=== PATIENT | male | born 1965 | race Caucasian/White ===

== ENCOUNTER 2020-02-11 08:48 | Emergency (ER) | payer MEDICAID, SELFPAY ==
[2020-02-11] VITALS (42 sets, daily range): BP systolic 158–223; BP diastolic 97–128; PULSE 59–100; RESP 9–23; TEMP 36.6; O2SAT 96–99
--- NOTE | 2020-02-11 08:45 | RT.EKG_ITS ---
APPROVED REPORT Exam: Resting ECG Patient Location: E HR:95 bpm ECG Measurements Heart Rate 95 AXIS W[place] 179 P 62 QRSd 108 QRS 28 QT 379 T 59 QTc 477 Conclusion Sinus rhythm...normal P axis, V-rate 60- 99 Probable left atrial enlargement...P >50mS, <-0.10mV V1 Inferior infarct, old...Q >35mS, II III aVF. 1mm ST depression in I, aVL, V3-6. No STEMI. Q waves II, III, aVF. I have reviewed and interpreted ECG and agree with software generated interpretation.
--- NOTE | 2020-02-11 09:00 | DI.RAD_ITS ---
EXAM: XR CHEST 2V PA LATERAL CLINICAL HISTORY: chest pressure. TECHNIQUE: 2D digital imaging was performed. COMPARISON: No exams were available for comparison FINDINGS: Heart size is normal. The mediastinum is not widened. 4 millimeter calcified granuloma in the right upper lobe is noted. There is hyperinflation both lung love but no infiltrates nor pleural effusions. No pulmonary edema. No pneumothorax. IMPRESSION: No acute pulmonary findings.Hyperinflation noted. Right lung benign calcified granuloma noted. DATA REPOSITORY: RADIATION DOSE DELIVERED:
--- NOTE | 2020-02-11 09:14 | W.ED.GENAD ---
Discharge Plan Disposition Patient Disposition: [facility] Condition: Serious Discharge Details Clinical Impression: Non-ST elevation CA (NSTEMI) Primary Care Provider: None,None ED Provider: Alphonso Yeh Home Meds and New Rx's Prescriptions: No Action No Known Home Meds RF: 0 Medical Decision Making <JOSE ANGEL Dinero - Last Filed: 02/11/20 12:41> This is a 54-year-old gentleman, former smoker, currently drinks 2 glasses of wine nightly, presenting to the ER for chest aching that radiates to both shoulders, but he initially felt to be heartburn. He took his typical baking soda mixture with no relief. Symptoms began yesterday, maxed at a 5 out of 10, and he actually hiked 6 miles yesterday. I do feel as though his story is quite concerning for ACS, case was immediately discussed with Dr. Curry. Will initiate sublingual nitro x3 if necessary and a full dose aspirin. We will initiate a cardiac work-up including a D-dimer. Patient reports his pain is a 2 out of 10 now, he is quite hypertensive. 0928 single nitro given 188/121. Aching now a 1 out of 10 I received a critical troponin of 5.95. EKG was immediately faxed to [facility] and a transfer to cardiology was initiated at 0938. 0947 blood pressure trending down at 174/120. Laboratory values reveal a white blood cell count of 16.32 hemoglobin 17.0 hematocrit 50.5 platelet count 371. INR 1.0 D-dimer 232. Potassium 3.0 creatinine 0.9 with a GFR greater than 60. Glucose 139. Magnesium 2.3. AST 101 ALT 77. Urine 20-50 red blood cells, no signs of infection. Chest x-ray read by radiology as no acute pulmonary findings. Hyperinflation noted. A right lung benign calcified granuloma noted. I received a call at 0950, from Dr. Jin, at [facility]. We discussed the case, she was able to review the EKG. Would like a loading dose of 180 Brilinta given, both a heparin bolus and drip initiated. Would like to replenish potassium, p.o. metoprolol, p.o. atorvastatin, and a nitro drip depending on if the patient is pain-free and how his blood pressure is doing. 40 p.o. potassium given. 80 atorvastatin 12.5 metoprolol p.o. given. Both a heparin bolus and drip initiated per protocol. Brilinta given. Excepting will be cardiology, Dr. Landa. Patient will not be going immediately to the [facility]. Patient did receive his third nitro. Repeat EKG performed at 1008. Please see official report by Dr. Curry. Sinus rhythm, ventricular rate of 85. The depressions segments that were present on the initial EKG do appear to be improved. Subtle depression remains in V4 and V5 only. Blood pressure at 1009 trending downward 168/108. Evaluation findings and my conversation with cardiology discussed with patient. Patient is agreeable to transfer to [facility]. All appropriate paperwork signed. 1020. Upon reevaluation blood pressure continues to trend downward 158/104. Patient reports that his chest pressure has resolved. Given this, we will not initiate a nitro drip. If has been at least an hour since last visit with [facility], they were contacted once again to see where we stand with transfer. They are in the process of discharging patient and will hopefully have a room soon. At 1124 I once again reevaluated the patient, he reports that he is asymptomatic. Denies chest aching whatsoever. Blood pressure now 171/102. At 1150 I reevaluated the patient. His blood pressure remains elevated at 170/100, no longer trending downward. He reports that his pain or aching has returned although mild in nature. 1 out of 10. Given his persistent hypertension and return of chest pain, will initiate a nitro drip, will initiate at 5 micrograms 3-hour repeat troponin 10.70. At 1238 patient is pain-free. Blood pressure trending downward, 158/102. 1240; [facility] called, they have given us a bed, arranging transfer. Lab Data Lab results reviewed: Yes I reviewed the patient's lab results. Lab results narrative: Laboratory Tests Range/Units 02/11/20 02/11/20 02/11/20 09:00 09:00 09:00 WBC (4.4-10.8) 10^3/uL 16.32 H RBC (4.36-5.78) 10^6/uL 5.68 Hgb (13.5-17.5) g/dL 17.0 Hct (40.0-50.0) % 50.5 H MCV (80-95) fL 88.9 MCH (27.0-33.0) pg 29.9 MCHC (32.0-36.0) % 33.7 RDW (11.8-14.1) % 12.3 Plt Count (130-400) 10^3/uL 371 MPV (8.0-11.0) fL 9.8 Immature Gran % 0.5 Neutrophils % 74.7 Lymphocytes % 18.6 Monocytes % 5.5 Eosinophils % 0.3 Basophils % 0.4 Nucleated RBC % % 0 Absolute Neutrophils (1.2-6.7) 10^3/uL 12.19 H Absolute Lymphocytes (1.2-3.4) 10^3/uL 3.04 Absolute Monocytes (0.1-0.8) 10^3/uL 0.90 H Absolute Eosinophils (0.0-0.7) 10^3/uL 0.05 Absolute Basophils (0.0-0.2) 10^3/uL 0.07 PT (9.3-11.0) sec 9.9 INR (0.9-1.1) 1.0 APTT (21.0-27.5) sec 24.1 D-Dimer (<500) ng/mlFEU 232 Sodium (136-145) mmol/L 138 Potassium (3.5-5.1) mmol/L 3.0 L Chloride (98-107) mmol/L 102 Carbon Dioxide (21.0-32.0) mmol/L 24.4 Anion Gap (3-11) mmol/L 11.6 H BUN (7-18) mg/dL 12 Creatinine (0.70-1.30) mg/dL 0.99 Estimated GFR/1.73 m2 (mL/min/1.73m2) >= 60.00 Glucose (74-106) mg/dL 139 H Calcium (8.5-10.1) mg/dL 9.7 Magnesium (1.8-2.4) mg/dL 2.3 Total Bilirubin (0.2-1.0) mg/dL 0.6 AST (15-37) U/L 101 H ALT (16-63) U/L 77 H Alkaline Phosphatase (46-116) U/L 93 Troponin I (<0.06) ng/mL 5.95 H* Total Protein (6.4-8.2) g/dL 8.7 H Albumin (3.4-5.0) g/dL 4.5 Urine Color (Yellow) Urine Clarity (Clear) Urine pH (5-8) Ur Specific [place] (1.005-1.025) Urine Protein (Negative) mg/dL Urine Ketones (Negative) mg/dL Urine Blood (Negative) Urine Nitrite (Negative) Urine Bilirubin (Negative) Urine Urobilinogen (Up TO 0.2) EU/dL Ur Leukocyte Esterase (Negative) Urine RBC (0-2) HPF Urine WBC (0-5) HPF Ur Epithelial Cells (Negative) HPF Urine Crystals (Negative) HPF Urine Bacteria (Negative) HPF Urine Casts (Negative) LPF Urine Mucus (Negative) Ur Culture Indicated? Urine Glucose (Negative) mg/dL Range/Units 02/11/20 09:30 WBC (4.4-10.8) 10^3/uL RBC (4.36-5.78) 10^6/uL Hgb (13.5-17.5) g/dL Hct (40.0-50.0) % MCV (80-95) fL MCH (27.0-33.0) pg MCHC (32.0-36.0) % RDW (11.8-14.1) % Plt Count (130-400) 10^3/uL MPV (8.0-11.0) fL Immature Gran % Neutrophils % Lymphocytes % Monocytes % Eosinophils % Basophils % Nucleated RBC % % Absolute Neutrophils (1.2-6.7) 10^3/uL Absolute Lymphocytes (1.2-3.4) 10^3/uL Absolute Monocytes (0.1-0.8) 10^3/uL Absolute Eosinophils (0.0-0.7) 10^3/uL Absolute Basophils (0.0-0.2) 10^3/uL PT (9.3-11.0) sec INR (0.9-1.1) APTT (21.0-27.5) sec D-Dimer (<500) ng/mlFEU Sodium (136-145) mmol/L Potassium (3.5-5.1) mmol/L Chloride (98-107) mmol/L Carbon Dioxide (21.0-32.0) mmol/L Anion Gap (3-11) mmol/L BUN (7-18) mg/dL Creatinine (0.70-1.30) mg/dL Estimated GFR/1.73 m2 (mL/min/1.73m2) Glucose (74-106) mg/dL Calcium (8.5-10.1) mg/dL Magnesium (1.8-2.4) mg/dL Total Bilirubin (0.2-1.0) mg/dL AST (15-37) U/L ALT (16-63) U/L Alkaline Phosphatase (46-116) U/L Troponin I (<0.06) ng/mL Total Protein (6.4-8.2) g/dL Albumin (3.4-5.0) g/dL Urine Color (Yellow) Yellow Urine Clarity (Clear) Clear Urine pH (5-8) 7.0 Ur Specific [place] (1.005-1.025) 1.025 Urine Protein (Negative) mg/dL 30 H Urine Ketones (Negative) mg/dL Negative Urine Blood (Negative) Small H Urine Nitrite (Negative) Negative Urine Bilirubin (Negative) Negative Urine Urobilinogen (Up TO 0.2) EU/dL 0.2 Ur Leukocyte Esterase (Negative) Negative Urine RBC (0-2) HPF 20-50 H Urine WBC (0-5) HPF 0-2 Ur Epithelial Cells (Negative) HPF Negative Urine Crystals (Negative) HPF Negative Urine Bacteria (Negative) HPF Few Urine Casts (Negative) LPF Negative Urine Mucus (Negative) Negative Ur Culture Indicated? No Urine Glucose (Negative) mg/dL Negative ECG Data Attestation: I personally reviewed and interpreted this ECG (s) as follows: Interpretation: Please see official report by Dr. Curry. Sinus rhythm, ventricular rate of 95. Subtle ST depression V3 through V6, lead I <Radha Curry DO - Last Filed: 02/11/20 10:34> I have seen and examined this patient. I discussed case and reviewed note with the PA and I agree with plan and note as documented. HPI <JOSE ANGEL Dinero - Last Filed: 02/11/20 12:41> General Mode of arrival: ambulatory. Date/Time Provider Initiated Documentation: 02/11/20 08:49. Limitations to Documentation: no limitations. Information obtained by: patient. HPI Narrative: This is a 54-year-old gentleman, former smoker, who has not had any medical attention in the last 10 years. He is presenting today for what he describes as heartburn, chest aching, that is different than his typical heartburn. He reports that it was present yesterday morning, is primarily substernal and he feels a heaviness to both of his shoulders, this heaviness does radiate into his bilateral biceps. He reports that the aching has been as severe as a 5 out of 10, currently a 2 out of 10. He typically checks his blood pressure a couple times a week, primarily runs in the 160s over 90s. He reports a dull mild global headache. Denies recent illness or trauma. Denies visual changes, fever, neck pain, shortness of breath, cough, abdominal pain, nausea, vomiting, diarrhea, constipation, numbness, tingling, weakness, pain or swelling in his legs. He does state that he thought he may have urinated more yesterday than usual. He took his home remedy of baking soda which typically helps with his heartburn without any resolution of his symptoms. Nothing makes his symptoms worse or better. He does state that it has been present, fairly constant for the past nearly 24 hours, but did ease up yesterday midday. He states that he went on a 6 mile hike yesterday and denies any worsening chest aching or any shortness of breath whatsoever during his activities. Related Data Home Medications Medication Instructions Recorded Confirmed Unknown [No Known Home Meds] 02/11/20 02/11/20 Allergies Allergy/AdvReac Type Severity Reaction Status Date / Time No Known Allergies Allergy Unverified 02/11/20 08:53 General Stated Complaint: Chest Pain JOSEFA: 2 Review of Systems <JOSE ANGEL Dinero - Last Filed: 02/11/20 12:41> Constitutional Constitutional: Denies fatigue, Denies fever(s), Reports headache(s) and Denies weakness Eyes Eyes: Denies change in vision ENT Ears, Nose, Mouth, and Throat: Reports headache(s) and Denies neck pain Cardiovascular Cardiovascular: Reports chest pain (Aching) and Denies dyspnea Respiratory Respiratory: Denies cough and Denies dyspnea Gastrointestinal Gastrointestinal: Denies abdominal pain, Reports belching, Denies constipation, Denies diarrhea, Denies nausea and Denies vomiting Genitourinary Genitourinary: Reports urinary frequency Musculoskeletal Musculoskeletal: Denies back pain, Denies neck pain and Denies tingling Integumentary/Breasts Skin/Breast: Denies rash Neurologic Neurologic: Reports headache(s), Denies tingling and Denies weakness Endocrine Endocrine: Denies fatigue PFSH <JOSE ANGEL Dinero - Last Filed: 02/11/20 12:41> Social History Smoking/Tobacco Use Status: Former Tobacco Use Smoking risk assessment performed?: Yes Alcohol Intake: current Alcohol Intake frequency: 0-2 drinks per day Alcohol type: wine Drug use: Occasionally Substance use type: marijuana Do you feel safe at home: Yes Do you feel safe in your relationship?: Yes Exam <JOSE ANGEL Dinero - Last Filed: 02/11/20 12:41> Const General: cooperative, healthy appearing, comfortable and no acute distress Orientation: alert, awake and oriented x3 HENMT Head: normal to inspection, normocephalic and atraumatic Eyes General: appearance normal, both eyes and all related structures Conjunctivae: conjunctivae normal Sclera: sclerae normal Neck Neck: normal visual inspection, full ROM, meningismus present, trachea midline and supple Chest Chest: normal inspection of the chest and normal palpation of entire chest wall Resp Effort & Inspection: normal respiratory effort and able to speak in complete sentences Auscultation: clear to auscultation bilaterally Cardio Rate: regular rate Rhythm: regular rhythm GI Inspection: normal to inspection Palpation: soft, not firm, no guarding, no pulsatile masses and nontender Auscultation: normal bowel sounds Back/Spine/Pelvis Back: No back tenderness Skin General skin exam: no rashes or lesions noted Neuro General: patient alert, patient awake, patient oriented x3, moves all extremities and no focal motor deficits Cognition: normal cognition Speech: speech normal Gait: normal gait Motor: muscle tone normal throughout Sensory Exam: no sensory deficits noted Extrem General: normal to inspection, full ROM, capillary refill normal, no pedal edema and no calf tenderness Psych Appearance: grossly normal Mental Status: mental status grossly normal Course <JOSE ANGEL Dinero - Last Filed: 02/11/20 12:41> Vital Signs Vital signs: Vital Signs Temperature 36.6 C 02/11/20 08:53 Pulse 95 H 02/11/20 08:53 Respiratory Rate 19 02/11/20 08:53 Blood Pressure 223/128 H 02/11/20 08:53 Pulse Oximetry 97 02/11/20 08:53 Temperature 36.6 C 02/11/20 08:53 Temperature Source Temporal Artery Scan 02/11/20 08:53 Pulse 95 H 02/11/20 08:53 Respiratory Rate 19 02/11/20 08:53 Respiratory Effort Non-Labored 02/11/20 08:57 Blood Pressure 223/128 H 02/11/20 08:53 Pulse Oximetry 97 02/11/20 08:53 Oxygen Delivery Method Room Air 02/11/20 08:53 Oxygen Flow Rate 0 02/11/20 08:53 Pain Level 3 02/11/20 08:53 Critical Care Time <JOSE ANGEL Dinero - Last Filed: 02/11/20 12:41> Critical Care Time Critical Care Time: Yes Total Critical Care Time: 45 Attestation: Upon my evaluation, this patient had a high probability of clinically significant, life-threatening deterioration due to their current medical conditions, which required my direct attention, intervention, and personal management. I have personally provided greater than 30 minutes of critical care time exclusive of the time spend on separately billable procedures. Time includes obtaining a history, examining the patient, pulse oximetry, review of laboratory data, radiology results, discussion with consultants, arranging urgent treatment with development of a management plan, evaluation of patient's response to treatment, and monitoring for potential decompensation. Interventions were performed as documented above.
[2020-02-11] MEDS: nitroGLYcerin 0.4 MG TAB SL ×3 (09:17→10:02)
[2020-02-11 09:18] LABS: Abs Immature Grans 0.08 10^3/uL (0.0-0.06); Absolute Eosinophil Count 0.05 10^3/uL (0.0-0.7); Basophils % 0.4; Eosinophils % 0.3; HCT 50.5 % (40.0-50.0); Immature Grans % 0.5; Lymphocytes % 18.6; MCH 29.9 pg (27.0-33.0); MCHC 33.7 % (32.0-36.0); MCV 88.9 fL (80-95); MPV 9.8 fL (8.0-11.0); Monocytes % 5.5; Neutrophils % 74.7; Nucleated RBC 0 %; Platelet Count 371 10^3/uL (130-400); RBC 5.68 10^6/uL (4.36-5.78); RDW 12.3 % (11.8-14.1); RDW-SD 40.2 fL; WBC 16.32 10^3/uL (4.4-10.8)
[2020-02-11] MEDS: Aspirin 81 MG CHEW 324 MG CH (09:18)
[2020-02-11 09:20] LABS: Absolute Basophil Count 0.07 10^3/uL (0.0-0.2); Absolute Lymphocyte Count 3.04 10^3/uL (1.2-3.4); Absolute Neutrophil Count 12.19 10^3/uL (1.2-6.7)
[2020-02-11 09:32] LABS: PTT Activated 24.1 sec (21.0-27.5); Prothrombin Time 9.9 sec (9.3-11.0)
[2020-02-11] MEDS: Normal Saline Flush 10 ML SYR IVP (09:32)
[2020-02-11 09:33] LABS: ALT 77 U/L (16-63); AST 101 U/L (15-37); Albumin 4.5 g/dL (3.4-5.0); Alkaline Phosphatase 93 U/L (46-116); Anion Gap 11.6 mmol/L (3-11); BUN 12 mg/dL (7-18); Bilirubin, Total 0.6 mg/dL (0.2-1.0); CO2 24.4 mmol/L (21.0-32.0); CREATININE 0.99 mg/dL (0.70-1.30); Calcium 9.7 mg/dL (8.5-10.1); Chloride 102 mmol/L (98-107); Glucose 139 mg/dL (74-106); Magnesium 2.3 mg/dL (1.8-2.4); Sodium 138 mmol/L (136-145); Total Protein 8.7 g/dL (6.4-8.2)
[2020-02-11 09:34] LABS: Troponin I 5.95 ng/mL (<0.06)
[2020-02-11 09:38] LABS: Bilirubin Negative (Negative); Blood Small (Negative); Clarity Clear (Clear); Glucose Negative (Negative); Ketones Negative (Negative); Leukocyte Esterase Negative (Negative); Nitrite Negative (Negative); Specific Gravity 1.025 (1.005-1.025); Urobilinogen 0.2 EU/dL (Up TO 0.2)
--- NOTE | 2020-02-11 10:00 | RT.EKG_ITS ---
APPROVED REPORT Exam: Resting ECG Patient Location: E HR:85 bpm ECG Measurements Heart Rate 85 AXIS [place] 160 P 66 QRSd 104 QRS 19 QT 387 T -13 QTc 461 Conclusion Sinus rhythm...normal P axis, V-rate 60- 99 Probable left atrial enlargement...P >50mS, <-0.10mV V1 Inferior infarct, old...Q >35mS, II III aVF I have reviewed and interpreted ECG and agree with software generated interpretation.
[2020-02-11 10:04] LABS: Bacteria Few HPF (Negative); C & S Indicated? No; Casts Negative LPF (Negative); Crystals Negative HPF (Negative); Epithelial Cells Negative HPF (Negative); Mucus Negative (Negative); RBC 20-50 HPF (0-2); WBC 0-2 HPF (0-5)
[2020-02-11] MEDS: Potassium Chloride 20 MEQ TABCR 40 MEQ PO (10:20)
[2020-02-11] MEDS: Atorvastatin 40 MG TAB 80 MG PO (10:22)
[2020-02-11] MEDS: Ticagrelor 90 MG TAB 180 MG PO (10:23)
[2020-02-11] MEDS: Metoprolol 12.5 MG TAB PO (10:29)
[2020-02-11 13:09] LABS: D-Dimer 323 ng/mlFEU (<500)
== END 2020-02-11 13:09 | disposition short-term general hospital (02) ==
PROVIDERS: Emergency Provider Physician Assistant
DX: I21.4 Non-ST elevation (NSTEMI) myocardial infarction (principal); R03.0 Elevated blood-pressure reading, without diagnosis of hypertension; R51.9 Headache, unspecified; Z87.891 Personal history of nicotine dependence
CPT/HCPCS: 36415; 80053; 93005; 96365; 96366; 96368; 96376; 99291; 71046; 81003; 81015; 83735; 84484; 85025; 85379; 85610; 85730; 93010; J3490

== ENCOUNTER 2020-03-14 08:53 | Outpatient (CLI) | payer MEDICAID, SELFPAY ==
--- NOTE | 2020-03-14 08:45 | RT.EKG_ITS ---
APPROVED REPORT Exam: Resting ECG Patient Location: O HR:55 bpm ECG Measurements Heart Rate 55 AXIS FL 182 P 57 QRSd 86 QRS 12 QT 414 T 2 QTc 396 Conclusion Sinus rhythm...normal P axis, V-rate 50- 99 Inferior infarct, old...Q >35mS, II III aVF
== END 2020-03-14 08:54 | disposition home or self-care (01) ==
LOC: DI.CARD 08:58
PROVIDERS: Visit Provider Internal Medicine Cardiovascular Disease
DX: I25.2 Old myocardial infarction (principal)
CPT/HCPCS: 93010

== ENCOUNTER 2021-02-09 08:43 | Emergency (ER) | payer MEDICAID, SELFPAY ==
[2021-02-09] VITALS (53 sets, daily range): BP systolic 130–180; BP diastolic 85–105; PULSE 59–110; RESP 7–28; TEMP 36.5; O2SAT 95–99
--- NOTE | 2021-02-09 08:45 | RT.EKG_ITS ---
APPROVED REPORT Exam: Resting ECG Reason for Exam: CHEST PAIN Patient Location: E HR:89 bpm ECG Measurements Heart Rate 89 AXIS DE 162 P 71 QRSd 106 QRS 40 QT 369 T 20 QTc 448 Conclusion Sinus rhythm...normal P axis, V-rate 60- 99 Ventricular bigeminy...bigeminy string>4 w/ V complexes no STEMI, non-diagnostic EKG I have reviewed and interpreted ECG and agree with software generated interpretation.
--- NOTE | 2021-02-09 09:00 | DI.RAD_ITS ---
Exam(s) XR PORTABLE CHEST AP EXAM: XR PORTABLE CHEST AP CLINICAL HISTORY: chest pain TECHNIQUE: 2D digital imaging was performed. COMPARISON: CR XR CHEST 2V PA LATERAL from 02/11/2020 FINDINGS: LUNGS: Hyperinflation. Scarring right upper lobe. No infiltrate. No pleural abnormality seen. HEART: Normal size. Coronary artery stent. MEDIASTINUM: Normal. BONES: Unremarkable. IMPRESSION: No acute pulmonary findings. DATA REPOSITORY: RADIATION DOSE DELIVERED:
--- NOTE | 2021-02-09 09:00 | RT.EKG_ITS ---
APPROVED REPORT Exam: Resting ECG Reason for Exam: chest pain Patient Location: E HR:65 bpm ECG Measurements Heart Rate 65 AXIS [place] 189 P 51 QRSd 96 QRS 10 QT 391 T 26 QTc 406 Conclusion Sinus rhythm...normal P axis, V-rate 60- 99 Inferior infarct, old...Q >35mS, II III aVF no STEMI, non-diagnostic EKG I have reviewed and interpreted ECG and agree with software generated interpretation.
[2021-02-09] MEDS: Aspirin 81 MG CHEW 243 MG CH (09:15)
[2021-02-09 09:16] LABS: Abs Immature Grans 0.05 10^3/uL (0.0-0.06); Absolute Basophil Count 0.07 10^3/uL (0.0-0.2); Absolute Eosinophil Count 0.42 10^3/uL (0.0-0.7); Absolute Lymphocyte Count 2.49 10^3/uL (1.2-3.4); Absolute Monocyte Count 0.62 10^3/uL (0.1-0.8); Absolute Neutrophil Count 7.08 10^3/uL (1.2-6.7); Basophils % 0.7; Eosinophils % 3.9; HCT 43.4 % (40.0-50.0); HGB 14.5 g/dL (13.5-17.5); Immature Grans % 0.5; Lymphocytes % 23.2; MCH 30.1 pg (27.0-33.0); MCHC 33.4 % (32.0-36.0); MCV 90.2 fL (80-95); MPV 10.1 fL (8.0-11.0); Monocytes % 5.8; Neutrophils % 65.9; Nucleated RBC 0 %; Platelet Count 332 10^3/uL (130-400); RBC 4.81 10^6/uL (4.36-5.78); RDW 12.1 % (11.8-14.1); RDW-SD 40.2 fL; WBC 10.73 10^3/uL (4.4-10.8)
[2021-02-09 09:26] LABS: Lipase 111 U/L (73-393)
--- NOTE | 2021-02-09 09:27 | ED.GENADUL_ITS ---
Discharge Plan Disposition Patient Disposition: HOME Condition: Stable Discharge Details Clinical Impression: Heart palpitations Primary Care Provider: [facility] Provider: Zulma Saucedo Home Meds and New Rx's Prescriptions: Continued lisinopril 10 mg tablet 15 mg PO DAILY Qty: 90 RF: 3 aspirin [Adult Low Dose Aspirin] 81 mg tablet,delayed release (DR/EC) 81 mg PO DAILY Qty: 90 RF: 0 atorvastatin 80 mg tablet 80 mg PO DAILY RF: 0 metoprolol succinate 50 mg tablet extended release 24 hr 50 mg PO DAILY RF: 0 nitroglycerin [Nitrostat] 0.4 mg tablet, sublingual 0.4 mg sublingual Q5M PRNRF: 0 Discharge Instructions Instructions: Heart Palpitations (ED) Additional Instructions: Please follow-up with your primary care physician this week for reassessment call cardiology for reassessment this week Please keep your Holter monitor in place as instructed Please return immediately should you have chest pain, worsening shortness of breath exertion, if you are feeling dizzy or weak, or should you have any new or worsening complaints Talk to your doctor about your Lipitor as it may be contributing to some muscle aches Referrals: Yanci Collins MD [ [facility] STAFF PHYSICIAN] - Hubert Guillory [ NON-[facility] STAFF PHYSICIAN] - Discharge Data Discharge Date/Time-TO BE ENTERED AT DEPARTURE: 02/09/21 13:33 Medical Decision Making Patient is high risk from a cardiac standpoint as he did have a recent RCA stent x2 approximately 1 year prior to arrival Although his EKG does not show ischemia today, he did neglect take his metoprolol last evening He denies any chest pain and reports palpitation 2 - troponins, repeat EKG without any ectopy or ischemia Symptoms inconsistent with patient prior non-ST elevation DC Case was discussed with Dr. Collins, cardiology who will follow up with patient We reviewed patient's prior catheterization that showed only very mild disease Patient was also referred to his primary care physician who actually called the emergency room to check on patient will follow closely additionally Holter monitor was placed Thyroid mildly elevated, unlikely to be contributing to today's symptoms Chest x-ray per radiology interpretation does not show acute abnormality I did discuss patient admission, however he has declined and prefers discharge home at this time I do not think this is unreasonable as he is completely asymptomatic without any chest pain or symptoms consistent with patient's prior DC He is given very low threshold to return should he have new or worsening complaints EKG was reviewed with my attending, Dr. Muñiz, please see her interpretation x2 Blood pressure 130/85 at time of reassessment and discharge, patient asymptomatic, ambulatory with steady gait, well in appearance Lab Data Lab results reviewed: Yes I reviewed the patient's lab results. ECG Data Prior ECG tracings: available for review HPI General Mode of arrival: ambulatory . Date/Time Provider Initiated Documentation: 02/09/21 08:52 . Limitations to Documentation: no limitations . Information obtained by: patient . HPI Narrative: This 55-year-old male presents with reports of a fluttering sensation in his chest which started this morning while he was reading from work email. He denies any stressors. He states that he was also nauseous and diaphoretic when this occurred. He had an DC approximately a year ago and was concerned regarding his symptoms. He does state he has chest pain with his last events. He has [address] He has established care with a allied health instructor but not have an appointment since his DC reportedly. He denies any current chest pain or pressure. He did have 2 nitroglycerin prior to arrival that did not change his symptoms. He states that [place] and he felt lightheaded and had to stop walking. He states this is slightly unusual for him. He has not had any additional imaging since his previous intervention a year ago. He denies any calf pain or swelling. He denies any recent flights, surgeries, long drives. He does not smoke tobacco. He is taking all of his medications as prescribed for blood pressure and hyperlipidemia. He denies any falls or injuries. He de nies any pleuritic pain. Related Data Home Medications Medication Instructions Recorded Confirmed atorvastatin 80 mg tablet 80 mg PO DAILY 03/13/20 02/09/21 metoprolol succinate 50 mg 50 mg PO DAILY 03/13/20 02/09/21 tablet,extended release 24 hr nitroglycerin 0.4 mg sublingual 0.4 mg SUBLINGUAL Q5M PRN 03/13/20 02/09/21 tablet aspirin 81 mg tablet,delayed 81 mg PO DAILY #90 tab 09/11/20 02/09/21 release lisinopril 10 mg tablet 15 mg PO DAILY #90 tab 09/11/20 02/09/21 Previous Rx's Medication Instructions Recorded aspirin 81 mg tablet,delayed 81 mg PO DAILY #90 tab 09/11/20 release lisinopril 10 mg tablet 15 mg PO DAILY #90 tab 09/11/20 Allergies Allergy/AdvReac Type Severity Reaction Status Date / Time No Known Allergies Allergy Verified 02/09/21 08:55 General Stated Complaint: [facility]Medical JOSEFA: 2 Review of Systems All systems reviewed & are unremarkable except as noted in HPI and below PFSH All Active Problems (Updated 02/09/21 @ 12:50 by JOSE ANGEL Salinas) Heart palpitations (Acute) Non-STEMI (non-ST elevated myocardial infarction) (Acute) STEMI (ST elevation myocardial infarction) (Acute) Social History Smoking/Tobacco Use Status: Former Tobacco Use Smoking risk assessment performed?: Yes Alcohol Intake: current Alcohol Intake frequency: 0-2 drinks per day Alcohol type: wine Drug use: Occasionally Substance use type: marijuana Do you feel safe at home: Yes Do you feel safe in your relationship?: Yes Exam Const General: cooperative, comfortable and no acute distress Orientation: alert and oriented x3 Eyes Pupils: PERRL Chest Chest: normal inspection of the chest Resp Effort & Inspection: normal respiratory effort Auscultation: clear to auscultation bilaterally Cardio Rate: regular rate Rhythm: regular rhythm GI Other: Nontender abdominal exam, no abdominal bruit or pulsatile mass Skin General skin exam: no rashes or lesions noted Neuro General: patient alert and patient oriented x3 Extrem Other: Distal pulses intact, no calf swelling or tenderness Course Vital Signs Vital signs: Vital Signs Respiratory Rate 20 02/09/21 08:49 Pulse Oximetry 98 02/09/21 08:49 Temperature 36.5 C 02/09/21 08:50 Temperature Source Skin 02/09/21 08:50 Pulse 89 02/09/21 09:16 Pulse 91 H 02/09/21 09:16 Respiratory Rate 19 02/09/21 09:16 Respiratory Effort Non-Labored 02/09/21 09:03 Respiratory Depth Normal 02/09/21 09:03 Respiratory Pattern Normal 02/09/21 09:03 Blood Pressure 136/100 H 02/09/21 09:16 Blood Pressure Mean 110 02/09/21 09:16 Blood Pressure Position Supine 02/09/21 08:50 Pulse Oximetry 97 02/09/21 09:16 Pain Level 0 02/09/21 08:50 Lab/Test Results Lab/Test Results: Laboratory Tests Range/Units 02/09/21 09:00 WBC (4.4-10.8) 10^3/uL 10.73 RBC (4.36-5.78) 10^6/uL 4.81 Hgb (13.5-17.5) g/dL 14.5 Hct (40.0-50.0) % 43.4 MCV (80-95) fL 90.2 MCH (27.0-33.0) pg 30.1 MCHC (32.0-36.0) % 33.4 RDW (11.8-14.1) % 12.1 Plt Count (130-400) 10^3/uL 332 MPV (8.0-11.0) fL 10.1 Immature Gran % 0.5 Neutrophils % 65.9 Lymphocytes % 23.2 Monocytes % 5.8 Eosinophils % 3.9 Basophils % 0.7 Nucleated RBC % % 0 Absolute Neutrophils (1.2-6.7) 10^3/uL 7.08 H Absolute Lymphocytes (1.2-3.4) 10^3/uL 2.49 Absolute Monocytes (0.1-0.8) 10^3/uL 0.62 Absolute Eosinophils (0.0-0.7) 10^3/uL 0.42 Absolute Basophils (0.0-0.2) 10^3/uL 0.07
[2021-02-09 09:32] LABS: ALT 38 U/L (16-63); AST 29 U/L (15-37); Alkaline Phosphatase 89 U/L (46-116); Anion Gap 11.4 mmol/L (3-11); BUN 17 mg/dL (7-18); Bilirubin, Total 0.6 mg/dL (0.2-1.0); CO2 24.6 mmol/L (21.0-32.0); CREATININE 0.9 mg/dL (0.70-1.30); Calcium 8.8 mg/dL (8.5-10.1); Chloride 105 mmol/L (98-107); Glucose 157 mg/dL (74-106); Potassium 3.4 mmol/L (3.5-5.1); Sodium 141 mmol/L (136-145); Total Protein 7.4 g/dL (6.4-8.2); Troponin I < 50 ng/L (<or=60)
[2021-02-09 09:39] LABS: Magnesium 2.1 mg/dL (1.8-2.4); TSH (W/Ref FT4) 4.32 uIU/mL (0.36-3.74)
[2021-02-09 09:55] LABS: FREE T4 1.06 ng/dL (0.76-1.46)
[2021-02-09] MEDS: Metoprolol CR 50 MG TABCR PO (10:41)
[2021-02-09 12:33] LABS: Troponin I < 50 ng/L (<or=60)
--- NOTE | 2021-02-09 12:47 | NUR.NOTE ---
Nursing Note: PT INFO GIVEN TO CARE MANAGEMENT TO ESTABLISH CARE. PT NEEDS PCP JAMES. PT INFO GIVEN TO CARDIOLOGY TO BE SEEN JAMES FOR DYSRHYTHMIA. FOREIGN, ED
== END 2021-02-09 13:33 | disposition home or self-care (01) ==
PROVIDERS: Emergency Provider Physician Assistant
DX: R00.2 Palpitations (principal); Z95.5 Presence of coronary angioplasty implant and graft; Z86.79 Personal history of other diseases of the circulatory system; R94.6 Abnormal results of thyroid function studies
CPT/HCPCS: 36415; 80053; 83690; 93005; 99284; 71045; 83735; 84439; 84443; 84484; 85025; 93010; 93225

== ENCOUNTER 2021-02-09 13:02 | Outpatient (RCR) | payer MEDICAID, SELFPAY ==
--- NOTE | 2021-02-09 13:00 | HOLTER_ITS ---
APPROVED REPORT Conclusion This is a 24-hour Holter monitor ordered for palpitations Predominant rhythm is sinus with an average heart rate of 69. Minimum was 35, maximum 100 There were rare isolated premature ventricular contractions There were no significant supraventricular dysrhythmias Accelerated idioventricular rhythm was present briefly during sleep, 4 beats in duration, rate approx imately 70 There was no atrial fibrillation, no high-grade AV block, no pauses greater than 3 seconds No patient symptoms were reported
== END 2021-03-09 23:59 | disposition home or self-care (01) ==
LOC: RT 13:02
PROVIDERS: Visit Provider Internal Medicine
DX: R00.2 Palpitations (principal)
CPT/HCPCS: 93225; 93226